=== PATIENT | female | born 1985 | race Hispanic/Latino ===

== ENCOUNTER 2024-02-22 06:37 | Day surgery (SDC) | payer MEDICAID ==
[2024-02-21 13:20] LABS: BASOPHILS # (AUTO) 0.05 K/uL (0.00-0.20); BASOPHILS % (AUTO) 0.8 % (0.0-5.0); EOSINOPHILS # (AUTO) 0.18 K/uL (0.00-0.70); EOSINOPHILS % (AUTO) 2.9 % (0.0-8.0); HEMATOCRIT 43.4 % (36-48); IMMATURE GRANULOCYTE ABSOLUTE 0.01 K/uL (0-1); LYMPHOCYTES # (AUTO) 1.8 K/uL (1.0-4.8); LYMPHOCYTES % (AUTO) 28.1 % (21.0-51.0); MEAN CORPUSCULAR HEMOGLOBIN 25.9 pg (27.0-33.0); MEAN CORPUSCULAR HGB CONC 30.9 g/dL (32.0-36.0); MEAN CORPUSCULAR VOLUME 83.9 fL (79-99); MONOCYTES # (AUTO) 0.5 K/uL (0.1-1.0); MONOCYTES % (AUTO) 7.5 % (3.0-13.0); NEUTROPHILS # (AUTO) 3.8 K/uL (1.8-7.7); NEUTROPHILS % (AUTO) 60.5 % (40.0-77.0); PLATELET COUNT (AUTO) 284 K/uL (130-400); RED BLOOD CELL COUNT(AUTO) 5.17 MIL/uL (4.00-5.50); RED CELL DISTRIBUTION WIDTH 21.2 % (11.0-15.5); WHITE BLOOD COUNT (AUTO) 6.2 K/uL (4.8-10.8)
[2024-02-21 13:21] VITALS: BP 105/77; PULSE 77; RESP 17
[2024-02-22] VITALS (18 sets, daily range): BP systolic 107–130; BP diastolic 65–78; PULSE 68–88; RESP 15–19
[~2024-02-22] VITALS: Ht 154.9 cm; Wt 81.4 kg
[~2024-02-22 06:37] MED LIST: IRON150C5 PO; [UNRECOGNIZED DRUG - CODE] PO; mvi PO
[2024-02-22] MEDS: CEFAZOLIN SODIUM 2 GM VIAL ONE (07:53)
[2024-02-22] MEDS: LACTATED RINGERS 1000ML 1,000 ML IV ONE (07:54)
[2024-02-22] MEDS ORDERED: FAMOTIDINE 20MG VIAL IV ONE (08:43)
[2024-02-22] MEDS ORDERED: MIDAZOLAM HCL 1 MG/ML 2ML VIAL ONE (08:47)
[2024-02-22] MEDS ORDERED: GLYCOPYRROLATE 0.2 MG/ML 5 ML VIAL ONE (08:49)
[2024-02-22] MEDS ORDERED: LIDOCAINE PF 100MG/5ML (2%) SYRINGE 5ML ONE (08:49)
[2024-02-22] MEDS ORDERED: PROPOFOL 10 MG/ML 20ML VIAL IV ONE (08:49)
[2024-02-22] MEDS ORDERED: ROCURONIUM BROMIDE 10MG/1ML 5ML VL ONE (08:49)
[2024-02-22] MEDS ORDERED: FENTANYL CITRATE PF 50 MCG/1 ML 2ML VIAL ONE ×2 (08:49→10:13)
[2024-02-22] MEDS ORDERED: ONDANSETRON 4MG INJ ONE (09:10)
[2024-02-22] MEDS: BUPIVACAINE/PF 0.25% 30ML VIAL IJ ONE (09:32)
[2024-02-22] MEDS ORDERED: BUPIVACAINE/PF 0.25% 30ML VIAL IJ ONE (09:37)
[2024-02-22] MEDS ORDERED: NEOSTIGMINE METHYLSULFATE 1MG/ML IV ONE (09:39)
[2024-02-22] MEDS ORDERED: MEPERIDINE-PF 25 MG/ML SYG ONE (09:42)
[2024-02-22] MEDS: KETOROLAC 30MG VIAL (30MG/ML) ONE (11:33)
== END 2024-02-22 12:55 | disposition home or self-care (01) ==
LOC: DAH 06:37
PROVIDERS: ATTEND Obstetrics & Gynecology
DX: N92.0 Excessive and frequent menstruation with regular cycle (principal); N84.0 Polyp of corpus uteri; Z30.2 Encounter for sterilization; E66.9 Obesity, unspecified; J45.909 Unspecified asthma, uncomplicated; Z79.899 Other long term (current) drug therapy; Z98.890 Other specified postprocedural states; Z90.49 Acquired absence of other specified parts of digestive tract; Z68.33 Body mass index [BMI] 33.0-33.9, adult
CPT/HCPCS: 86900; 84703; 85025; 86850; 86901; 36415; 58670; 58563; 88305; A6260; A4663; A4351; A4606; J7120; J3010 ×2; J0665 ×2; J3490 ×4; J2250; J2405; J1885; J2710; J2175; J0690; C1769 ×3; A4649; A4215 ×2; A4930; A4223; A4222; A4221; A4600; A4510; S0028; J2001; J2704; G0168

== ENCOUNTER 2024-03-20 10:00 | Inpatient (IN) | payer MEDICAID ==
[~2024-03-20] VITALS: Ht 154.9 cm; Wt 82.5 kg
[2024-03-20 09:49] LABS: BASOPHILS # (AUTO) 0.04 K/uL (0.00-0.20); BASOPHILS % (AUTO) 0.7 % (0.0-5.0); EOSINOPHILS # (AUTO) 0.24 K/uL (0.00-0.70); EOSINOPHILS % (AUTO) 4.3 % (0.0-8.0); HEMATOCRIT 44.1 % (36-48); IMMATURE GRANULOCYTE ABSOLUTE 0.03 K/uL (0-1); LYMPHOCYTES # (AUTO) 1.9 K/uL (1.0-4.8); MEAN CORPUSCULAR HEMOGLOBIN 26.8 pg (27.0-33.0); MEAN CORPUSCULAR HGB CONC 31.5 g/dL (32.0-36.0); MEAN CORPUSCULAR VOLUME 85.1 fL (79-99); MONOCYTES # (AUTO) 0.5 K/uL (0.1-1.0); MONOCYTES % (AUTO) 9.4 % (3.0-13.0); NEUTROPHILS # (AUTO) 2.8 K/uL (1.8-7.7); NEUTROPHILS % (AUTO) 50.1 % (40.0-77.0); PLATELET COUNT (AUTO) 226 K/uL (130-400); RED BLOOD CELL COUNT(AUTO) 5.18 MIL/uL (4.00-5.50); RED CELL DISTRIBUTION WIDTH 20.1 % (11.0-15.5); WHITE BLOOD COUNT (AUTO) 5.5 K/uL (4.8-10.8)
[2024-03-20 10:34] VITALS: BP 103/74; PULSE 71; RESP 16
[2024-03-26 14:37] LABS: CREATININE 0.8 mg/dL (0.5-1.0); POTASSIUM 4.3 mmol/L (3.5-5.1)
[2024-03-28] VITALS (26 sets, daily range): BP systolic 108–133; BP diastolic 60–75; PULSE 62–80; RESP 12–20
[2024-03-28] MEDS: CEFAZOLIN SODIUM 2 GM VIAL ONE (06:36)
[2024-03-28] MEDS: FAMOTIDINE 20MG VIAL IV ONE (07:04)
[2024-03-28] MEDS: ACETAMINOPHEN 1,000 MG/100 ML VIAL IV ONE (07:04)
[2024-03-28] MEDS ORDERED: KETAMINE 50MG/ML SYRINGE 50 MG/ML DISP.SYRIN ONE (07:10)
[2024-03-28] MEDS ORDERED: UNKNOWN INHALER IH (07:12)
[2024-03-28] MEDS ORDERED: FENTANYL CITRATE PF 50 MCG/1 ML 2ML VIAL ONE (07:16)
[2024-03-28] MEDS ORDERED: PROPOFOL 10 MG/ML 20ML VIAL IV ONE (07:16)
[2024-03-28] MEDS ORDERED: ROCURONIUM BROMIDE 10MG/1ML 5ML VL ONE (07:16)
[2024-03-28] MEDS ORDERED: LIDOCAINE PF 100MG/5ML (2%) SYRINGE 5ML ONE (07:16)
[2024-03-28] MEDS ORDERED: MIDAZOLAM HCL 1 MG/ML 2ML VIAL ONE (07:17)
[2024-03-28] MEDS ORDERED: MORPHINE PF 100MG/10ML AMP IV ONE (07:20)
[2024-03-28] MEDS ORDERED: ONDANSETRON 4MG INJ ONE (07:57)
[2024-03-28] MEDS ORDERED: DEXAMETHASONE SOD PHOSPHATE 10MG/ML 1ML VIAL ONE (07:57)
[2024-03-28] MEDS: CEFAZOLIN SODIUM 2 GM VIAL IVPB ONE (08:00)
[2024-03-28] MEDS ORDERED: NEOSTIGMINE METHYLSULFATE 1MG/ML IV ONE (09:10)
[2024-03-28] MEDS ORDERED: GLYCOPYRROLATE 0.2 MG/ML 5 ML VIAL ONE (09:10)
[2024-03-28] MEDS ORDERED: PROMETHAZINE HCL 25 MG/ML 1ML AMPULE IM PRN (10:00)
[2024-03-28] MEDS ORDERED: IBUPROFEN 600 MG TABLET PO PRN (10:00)
[2024-03-28] MEDS ORDERED: BISACODYL 10 MG SUPP.RECT RC PRN (10:00)
[2024-03-28] MEDS: CALDOLOR 800MG+NS 250ML 250 ML IV ONE (10:29)
[2024-03-28] MEDS: MEPERIDINE-PF 75 MG/ML SYG IM PRN (11:43)
[2024-03-28] MEDS: PROMETHAZINE HCL 25 MG/ML 1ML AMPULE IM PRN (11:44)
[2024-03-28] MEDS: LACTATED RINGERS 1000ML 1,000 ML IV ONE (15:35)
[2024-03-28] MEDS: CALDOLOR 800MG+NS 250ML 250 ML IV SCH (18:31)
[2024-03-29] MEDS ORDERED: BISACODYL 10 MG SUPP.RECT RC PRN
[2024-03-29] MEDS ORDERED: ACETAMINOPHEN WITH CODEINE 1 TAB TAB PO PRN
[2024-03-29] MEDS: LACTATED RINGERS 1000ML 1,000 ML IV SCH (00:30)
[2024-03-29 02:44] VITALS: BP 109/55; PULSE 79; RESP 20
[2024-03-29 07:01] LABS: BASOPHILS # (AUTO) 0.01 K/uL (0.00-0.20); BASOPHILS % (AUTO) 0.1 % (0.0-5.0); EOSINOPHILS # (AUTO) 0.02 K/uL (0.00-0.70); EOSINOPHILS % (AUTO) 0.2 % (0.0-8.0); IMMATURE GRANULOCYTE ABSOLUTE 0.04 K/uL (0-1); LYMPHOCYTES # (AUTO) 1.5 K/uL (1.0-4.8); LYMPHOCYTES % (AUTO) 15.7 % (21.0-51.0); MEAN CORPUSCULAR HEMOGLOBIN 26.5 pg (27.0-33.0); MEAN CORPUSCULAR HGB CONC 31.8 g/dL (32.0-36.0); MEAN CORPUSCULAR VOLUME 83.3 fL (79-99); MONOCYTES % (AUTO) 10.4 % (3.0-13.0); NEUTROPHILS # (AUTO) 7.2 K/uL (1.8-7.7); NEUTROPHILS % (AUTO) 73.2 % (40.0-77.0); PLATELET COUNT (AUTO) 236 K/uL (130-400); RED BLOOD CELL COUNT(AUTO) 4.56 MIL/uL (4.00-5.50); RED CELL DISTRIBUTION WIDTH 19.3 % (11.0-15.5); WHITE BLOOD COUNT (AUTO) 9.8 K/uL (4.8-10.8)
[2024-03-29 07:20] VITALS: BP 106/63; PULSE 76; RESP 20
[2024-03-29] MEDS: ACETAMINOPHEN WITH CODEINE 1 TAB TAB PO PRN ×2 (07:23→12:09)
[2024-03-29] MEDS: DOCUSATE SODIUM 100 MG CAP PO PRN (08:03)
[2024-03-29] MEDS: SIMETHICONE 80 MG TAB.CHEW PO PRN (08:03)
[2024-03-29] MEDS: IBUPROFEN 800 MG TAB PO PRN (09:39)
[2024-03-29 11:15] VITALS: BP 109/68; PULSE 80; RESP 20
[2024-03-29 15:26] VITALS: BP 113/71; PULSE 84; RESP 20
[2024-03-29 19:30] VITALS: BP 119/61; PULSE 83; RESP 18
[2024-03-29] MEDS: HYDROCODONE/ACETAMINOPHEN 5/325 MG TAB PO PRN (21:08)
[2024-03-29 23:07] VITALS: BP 106/56; PULSE 83; RESP 20
[2024-03-30 03:15] VITALS: BP 119/70; PULSE 83; RESP 18
[2024-03-30 07:20] VITALS: BP 122/64; PULSE 78; RESP 18
[2024-03-30] MEDS ORDERED: DOCU-116 PO (09:22)
[2024-03-30] MEDS ORDERED: IBUP-2077 PO (09:23)
[2024-03-30] MEDS ORDERED: ACET-2079 PO (09:24)
== END 2024-03-30 10:30 | disposition home or self-care (01) | DRG 513 ==
LOC: EDSTATUS 10:00 → DAH 10:00 → EDSTATUS 10:00 → DAHIP 03-28 05:52 → WSH 03-28 10:50
PROVIDERS: ADMIT Obstetrics & Gynecology; ATTEND Obstetrics & Gynecology
PROC: 0UT90ZZ Resection of Uterus, Open Approach (ICD-10-PCS; principal; 2024-03-28 10:10)
DX: N92.0 Excessive and frequent menstruation with regular cycle (principal); J45.909 Unspecified asthma, uncomplicated; N89.5 Stricture and atresia of vagina; Z98.891 History of uterine scar from previous surgery; Z90.49 Acquired absence of other specified parts of digestive tract; Z98.51 Tubal ligation status
CPT/HCPCS: 36415; 80048; 84703; 85025; 86850; 86900; 86901; 86923; A4344; G0378; J1100; J1741; J2001; J2175; J2250; J2274; J2405; J2550; J2704; J2710; J3010; J3490; J7030; J7120; A4213; A4215; A4221; A4222; A4223; A4510; A4600; A4663; A6260; G0168; J0690